=== PATIENT | female | born 1995 | race Two or more races ===

== ENCOUNTER 2023-08-16 06:40 | Day surgery (SDC) | payer OTHER ==
[2023-08-15 12:45] LABS: HEMATOCRIT 37.1 % (36.0-45.00); HEMOGLOBIN 12.8 g/dL (12.0-15.00); MEAN CELL VOLUME 86.5 fL (80.00-100.00); MEAN CORPUSCULAR HEMOGLOBIN 29.9 pg (27.00-32.0); MEAN CORPUSCULAR HGB CONC 34.6 g/dl (32.0-36.0); PLATELET COUNT 315 K/uL (150-450); RED BLOOD COUNT 4.29 M/uL (4.00-6.00); RED CELL DISTRIBUTION WIDTH 13.4 % (11.5-14.5)
[2023-08-15 13:26] LABS: INR 1.01; PARTIAL THROMBOPLASTIN TIME 27.8 SECONDS (22.0-34.0); PROTHROMBIN TIME 10.6 SECONDS (9.0-11.5)
[2023-08-15 13:29] LABS: ALBUMIN 3.5 gm/dL (3.4-5.0); BILIRUBIN TOTAL 0.46 mg/dL (0.3-1.2); CALCIUM 9.4 mg/dL (8.5-10.1); CREATININE SERUM 0.65 mg/dL (0.55-1.02); GFR 107.76; GLOBULINA 4.7 G/DL (2.4-3.5); POTASSIUM 4.11 mEq/L (3.5-5.1); TOTAL PROTEIN 8.2 gm/dL (6.4-8.2)
[~2023-08-16 06:40] MED LIST: HUMIRA40 MG/0.2 SQ
[2023-08-16] MEDS ORDERED: POVIDONE-IODINE 118 ML BOTT TOP ONE (13:22)
[2023-08-16] MEDS ORDERED: DOXYCYCLINE HYCLATE 100 MG TABLET PO ONE (14:00)
[2023-08-16] MEDS ORDERED: PROMETHAZINE HCL 50 MG/ML AMPUL IM ONE (14:30)
[2023-08-16] MEDS ORDERED: MORPHINE SULFATE 4 MG/ML VIAL IV PRN (14:30)
== END 2023-08-16 16:40 | disposition home or self-care (01) ==
LOC: CIR.AMB 06:40
PROVIDERS: ATTEND Obstetrics & Gynecology
DX: O02.1 Missed abortion (principal); Z88.8 Allergy status to other drugs, medicaments and biological substances

== ENCOUNTER → 2024-09-23 | Emergency (ER) | payer OTHER | END | disposition left against medical advice (07) | LOC: ER 21:42 | DX: Z53.21 Procedure and treatment not carried out due to patient leaving prior to being seen by health care provider (principal) ==

== ENCOUNTER 2025-01-01 14:46 | Outpatient (CLI) | payer OTHER ==
[~2025-01-01] VITALS: Ht 149.9 cm; Wt 76.2 kg
[2025-01-01 14:00] VITALS: BP 123/72
[2025-01-01] MEDS ORDERED: PRENATAL TABLE1 EAC1 PO (15:11)
[2025-01-01] MEDS ORDERED: RINGERS SOLUTION,LACTATED 1,000 ML IV SCH (15:15)
[2025-01-01 15:31] VITALS: BP 106/63; O2SAT 100
[2025-01-01 15:34] LABS: BASO % 0.2 % (0.1-1.2); EOS # 0.08 (0.04-0.54); EOS % 0.8 % (0.7-7.0); LYMPH # 0.75 (1.18-3.74); LYMPH % 7.6 % (19.3-53.1); MEAN PLATELET VOLUME 10.50 fl (9.4-12.4); MONO # 0.79 (0.24-0.82); MONO % 8.0 % (4.7-12.5); NEUT # 8.04 (1.56-6.13); NEUT % 81.9 % (34.0-71.1); RED CELL DISTRIBUTION WIDTH 12.6 % (11.6-14.4); URINE APPEARANCE Clear; URINE BILIRRUBIN Negative (NEGATIVE); URINE BLOOD Negative; URINE COLOR Yellow; URINE GLUCOSE Negative (NEGATIVE); URINE KETONE Negative (NEGATIVE); URINE LEUKOCYTE Large; URINE NITRATE Negative; URINE PROTEIN Negative (NEGATIVE); URINE UROBILINOGEN 0.2 E.U./dl
[2025-01-01 15:37] LABS: URINE BACTERIA 1801.2 uL (0.0-1933); URINE EPITHELIAL CELLS 25.9 uL (0.0-38.8); URINE WBC 118.2 uL (0.0-23.2)
[2025-01-01 15:39] LABS: URINE CAST 0.43 uL (0.0-1.40); URINE RBC 0.7 uL (0.0-20.8)
[2025-01-01 15:58] LABS: INR 1.0
[2025-01-01 16:19] LABS: ALT/SGPT 27.0 U/L (12-78); AST/SGOT 16.0 U/L (15-37); BILIRUBIN TOTAL 0.18 mg/dL (0.3-1.2); BUN CREA RATIO 19.0 (7.0-25.0); CREATININE SERUM 0.43 mg/dL (0.55-1.02); GFR 171.26; GLOBULINA 3.9 G/DL (2.4-3.5); GLUCOSE FASTING 80.0 mg/dL (65-100); OSMOLALITY SERUM 279.0 MOSM/KG (275-295)
[2025-01-01] MEDS ORDERED: ACETAMINOPHEN 500 MG GEL..CAP PO PRN (16:30)
[2025-01-01 19:06] VITALS: BP 113/67; O2SAT 100
[2025-01-01] MEDS ORDERED: GUAIFENESIN 600 MG TABLET.SA PO SCH (22:15)
[2025-01-01] MEDS ORDERED: FAMOTIDINE/PF 20 MG/2 ML VIAL IV PUSH PRN (22:45)
[2025-01-01 23:25] VITALS: BP 113/62; O2SAT 99
[2025-01-02 03:17] VITALS: BP 102/53; O2SAT 99
[2025-01-02 07:42] VITALS: BP 100/70; O2SAT 98
[2025-01-02 11:21] VITALS: BP 111/66; O2SAT 100
[2025-01-02 15:40] VITALS: BP 106/67
== END 2025-01-02 14:26 | disposition home or self-care (01) ==
LOC: OBS/DEL 14:46 → LDR 14:46 → OBS/DEL 01-02 14:26 → LDR 01-02 14:26 → EDSTATUS 01-15 16:24
PROVIDERS: ATTEND Obstetrics & Gynecology Gynecology
DX: O26.893 Other specified pregnancy related conditions, third trimester (principal); U07.1 COVID-19; Z3A.31 31 weeks gestation of pregnancy

== ENCOUNTER 2025-02-07 07:41 | Inpatient (IN) | payer OTHER ==
[~2025-02-07] VITALS: Ht 149.9 cm; Wt 83.9 kg
[2025-02-07 07:17] VITALS: BP 127/73
[~2025-02-07 07:41] MED LIST changes: +PRENATAL TABLE1 EAC1 PO
[2025-02-07] MEDS ORDERED: HADLIMA40 MG/0.8 SUBCUTANEO (08:03)
[2025-02-07] MEDS ORDERED: AMPICILLIN SODIUM 2,000 MG VIAL IV STA (08:43)
[2025-02-07] MEDS ORDERED: OXYTOCIN 500 ML IV ONE (08:45)
[2025-02-07 08:55] LABS: BASO % 0.2 % (0.1-1.2); EOS # 0.03 (0.04-0.54); EOS % 0.2 % (0.7-7.0); LYMPH # 2.66 (1.18-3.74); LYMPH % 21.4 % (19.3-53.1); MEAN PLATELET VOLUME 10.80 fl (9.4-12.4); MONO # 0.70 (0.24-0.82); MONO % 5.6 % (4.7-12.5); NEUT # 8.82 (1.56-6.13); NEUT % 71.0 % (34.0-71.1); RED CELL DISTRIBUTION WIDTH 14.0 % (11.6-14.4)
[2025-02-07] MEDS ORDERED: AMPICILLIN SODIUM 1,000 MG VIAL IV SCH (09:00)
[2025-02-07] MEDS ORDERED: RINGERS SOLUTION,LACTATED 1,000 ML IV SCH (09:15)
[2025-02-07 09:22] LABS: INR 0.95
[2025-02-07 09:26] LABS: ALT/SGPT 25.0 U/L (12-78); AST/SGOT 17.0 U/L (15-37); BILIRUBIN TOTAL 0.32 mg/dL (0.3-1.2); BUN CREA RATIO 19.0 (7.0-25.0); CREATININE SERUM 0.57 mg/dL (0.55-1.02); GFR 123.71; GLOBULINA 4.1 G/DL (2.4-3.5); GLUCOSE FASTING 89.0 mg/dL (65-100); OSMOLALITY SERUM 276.0 MOSM/KG (275-295)
[2025-02-07 10:46] VITALS: BP 123/75
[2025-02-07 15:30] VITALS: BP 116/67
[2025-02-07] MEDS ORDERED: ERYTHROMYCIN BASE OPHT 1GM EACH TUBE OP ONE (19:08)
[2025-02-07] MEDS ORDERED: OXYTOCIN 10 UNITS/ML VIAL ONE ×2 (19:08→22:03)
[2025-02-07] MEDS ORDERED: MORPHINE SULFATE 4 MG/ML CARTRIDGE IV PRN (20:30)
[2025-02-07] MEDS ORDERED: KETOROLAC TROMETHAMINE 30 MG VIAL IV NR (20:30)
[2025-02-07] MEDS ORDERED: OXYTOCIN 1,000 ML IV SCH (20:30)
[2025-02-07] MEDS ORDERED: SOD FERRIC GLUC COMPLX/SUCROSE 62.5 MG/5 ML AMPUL IV SCH (21:30)
[2025-02-08 01:11] VITALS: BP 115/66
[2025-02-08 08:49] VITALS: BP 98/61
[2025-02-08 13:33] VITALS: BP 103/68
[2025-02-08] MEDS ORDERED: OxyCODONE HCL 5 MG TABLET (ROXICODONE) PO PRN (15:45)
[2025-02-08 20:17] VITALS: BP 105/55
[2025-02-09] VITALS: BP 96/60
[2025-02-09 08:00] VITALS: BP 111/79
== END 2025-02-09 14:02 | disposition home or self-care (01) | DRG 786 ==
LOC: OB/GYN 07:41 → LDR 07:41 → OB/GYN 16:08
PROVIDERS: ADMIT Obstetrics & Gynecology; ATTEND Obstetrics & Gynecology
PROC: 4A1HXCZ Monitoring of Products of Conception, Cardiac Rate, External Approach (ICD-10-PCS; 2025-02-07)
PROC: 10D00Z1 Extraction of Products of Conception, Low, Open Approach (ICD-10-PCS; principal; 2025-02-07 19:00)
DX: O42.013 Preterm premature rupture of membranes, onset of labor within 24 hours of rupture, third trimester (principal); O60.14X0 Preterm labor third trimester with preterm delivery third trimester, not applicable or unspecified; Z3A.36 36 weeks gestation of pregnancy; Z37.0 Single live birth